=== PATIENT | male | born 1965 | race African-American/Black ===

== ENCOUNTER 2020-06-29 18:38 | Inpatient (IN) | payer BC, OTHER ==
[~2020-06-29] VITALS: Ht 185.4 cm; Wt 138.3 kg
[2020-06-29] MEDS ORDERED: PANTOPRAZOLE SODIUM 40 MG/VIAL IV STA (18:52)
[2020-06-29] MEDS ORDERED: ONDANSETRON HCL 4MG/2ML INJ IV STA (18:52)
[2020-06-29] MEDS ORDERED: SODIUM CHLORIDE 0.9% 1,000 ML IV ONE ×2 (19:00→19:15)
[2020-06-29] MEDS ORDERED: PANTOPRAZOLE SODIUM 40 MG/VIAL IV ONE ×2 (19:15→19:39)
[2020-06-29] MEDS ORDERED: PANTOPRAZOLE 80 MG in SODIUM CHLORIDE 0.9% 100 ML IV SCH ×2 (19:15→20:00)
[2020-06-29] MEDS ORDERED: OCTREOTIDE 1,000 MCG in SODIUM CHLORIDE 0.9% 100 ML IV ONE ×2 (19:30→20:00)
[2020-06-29 19:35] LABS: BASOPHILS % 0.9 % (0.0-2.0); HEMATOCRIT. 30.8 % (42.0-52.0); HEMOGLOBIN. 9.8 g/dL (14.0-18.0); LYMPHOCYTES % 10.7 % (20.0-50.0); MEAN CORPUSCULAR HEMOGLOBIN 25.4 pg (28.0-32.0); MEAN CORPUSCULAR VOLUME 79.5 fL (80.0-94.0); MEAN PLATELET VOLUME 10.6 fl (7.4-10.4); MONOCYTES % 2.8 % (2.0-8.0); NEUTROPHILS % 85.6 % (40.0-76.0); PLATELET 165 x1000/uL (130-400); RED BLOOD CELL COUNT 3.87 mill/uL (4.7-6.1)
[2020-06-29 19:38] LABS: CHLORIDE 107 mEq/L (98-107)
[2020-06-29 19:42] LABS: INR 1.1; PROTHROMBIN TIME 11.4 sec (9.6-11.0)
[2020-06-29 19:43] LABS: ETHANOL BLOOD < 10 mg/dL
[2020-06-29] MEDS ORDERED: MORPHINE SULFATE 4 MG/ML CPJ (NOT FOR IM USE) IV ONE (22:00)
[2020-06-29] MEDS ORDERED: ONDANSETRON HCL 4MG/2ML INJ IV PRN (22:15)
[2020-06-29 23:13] LABS: TOTAL IRON BINDING CAPACITY 350 ug/dL (250-450)
[2020-06-29] MEDS ORDERED: IOHEXOL-300 100 ML BOTTLE ONE (23:49)
[2020-06-30] VITALS (10 sets, daily range): BP systolic 106–155; BP diastolic 63–107
[2020-06-30] MEDS: DEXT 5%/0.45% NACL 1000ML 1,000 ML IV SCH ×3 (01:12→23:57)
[2020-06-30] MEDS: ACETAMINOPHEN 325MG TABLET PO PRN (01:30)
[2020-06-30] MEDS ORDERED: ZOLPIDEM TARTRATE 5MG TABLET PO PRN (01:45)
[2020-06-30] MEDS: PANTOPRAZOLE 80 MG in SODIUM CHLORIDE 0.9% 100 ML IV SCH ×2 (03:36→14:02)
[2020-06-30] MEDS ORDERED: PANTOPRAZOLE 80 MG in SODIUM CHLORIDE 0.9% 100 ML IV SCH (05:00)
[2020-06-30 05:16] LABS: CHLORIDE 110 mEq/L (98-107)
[2020-06-30 05:19] LABS: BASOPHILS % 0.3 % (0.0-2.0); HEMATOCRIT. 26.6 % (42.0-52.0); HEMOGLOBIN. 8.4 g/dL (14.0-18.0); LYMPHOCYTES % 16.8 % (20.0-50.0); MEAN CORPUSCULAR HEMOGLOBIN 25.2 pg (28.0-32.0); MEAN CORPUSCULAR VOLUME 80.1 fL (80.0-94.0); MEAN PLATELET VOLUME 10.6 fl (7.4-10.4); MONOCYTES % 4.5 % (2.0-8.0); NEUTROPHILS % 78.4 % (40.0-76.0); PLATELET 98 x1000/uL (130-400); RED BLOOD CELL COUNT 3.32 mill/uL (4.7-6.1); RED CELL DISTRIBUTION WIDTH 17.1 % (11.6-14.6)
[2020-06-30] MEDS: HYDROMORPHONE HCL/PF 2MG/ML CPJ IV PRN ×2 (05:50→10:15)
[2020-06-30] MEDS ORDERED: ASPI-1497 PO (09:57)
[2020-06-30] MEDS ORDERED: [UNRECOGNIZED DRUG - OTHER] PO (09:57)
[2020-06-30] MEDS ORDERED: MULT-1146 PO (09:57)
[2020-06-30] MEDS ORDERED: LIP40 PO (09:57)
[2020-06-30] MEDS ORDERED: LISI20TA31 PO (09:57)
[2020-06-30] MEDS ORDERED: OCTREOTIDE 1,000 MCG in SODIUM CHLORIDE 0.9% 98 ML IV SCH (13:15)
[2020-06-30] MEDS ORDERED: METOCLOPRAMIDE HCL 10MG/2ML VIAL IV SCH (14:00)
[2020-06-30 15:44] LABS: HEMATOCRIT 24.8 % (42.0-52.0); HEMOGLOBIN 7.8 g/dL (14.0-18.0)
[2020-06-30] MEDS ORDERED: METOCLOPRAMIDE HCL 10MG/2ML VIAL IV NR (16:00)
[2020-06-30] MEDS ORDERED: MIDAZOLAM HCL 5 MG/5 ML VIAL ONE (17:07)
[2020-06-30] MEDS ORDERED: FENTANYL CITRATE/PF 50MCG/ML 2ML VIAL ONE (17:07)
[2020-06-30] MEDS ORDERED: MIDAZOLAM HCL 5 MG/5 ML VIAL IV PRN (17:07)
[2020-06-30] MEDS ORDERED: FENTANYL CITRATE/PF 50MCG/ML 2ML VIAL IV PRN (17:07)
[2020-06-30] MEDS ORDERED: DIAZEPAM 5 MG/ML 2ML CPJ ONE ×2 (17:12→17:18)
[2020-06-30] MEDS ORDERED: DIAZEPAM 5 MG/ML 2ML CPJ IV PRN (17:12)
[2020-07-01] VITALS (26 sets, daily range): BP systolic 97–203; BP diastolic 64–113
[2020-07-01] MEDS: PANTOPRAZOLE 80 MG in SODIUM CHLORIDE 0.9% 100 ML IV SCH (00:05)
[2020-07-01 01:08] LABS: HEMATOCRIT 23.4 % (42.0-52.0); HEMOGLOBIN 7.6 g/dL (14.0-18.0)
[2020-07-01 07:10] LABS: PARTIAL THROMBOPLASTIN TIME 24.4 sec (23.4-31.0); PROTHROMBIN TIME 10.9 sec (9.6-11.0)
[2020-07-01 07:11] LABS: BASOPHILS % 0.4 % (0.0-2.0); EOSINOPHILS % 0.6 % (0.0-5.0); HEMATOCRIT. 22.2 % (42.0-52.0); HEMOGLOBIN. 7.1 g/dL (14.0-18.0); LYMPHOCYTES % 19.1 % (20.0-50.0); MEAN CORPUSCULAR VOLUME 80.9 fL (80.0-94.0); MEAN PLATELET VOLUME 9.4 fl (7.4-10.4); MONOCYTES % 4.4 % (2.0-8.0); NEUTROPHILS % 75.5 % (40.0-76.0); PLATELET 103 x1000/uL (130-400); RED BLOOD CELL COUNT 2.75 mill/uL (4.7-6.1)
[2020-07-01 07:24] LABS: CHLORIDE 110 mEq/L (98-107)
[2020-07-01 07:38] LABS: FOLIC ACID (FOLATE) SERUM >20 ng/mL ng/mL (>5.38)
[2020-07-01 07:49] LABS: VITAMIN B12 SERUM 654 pg/mL (211-911)
[2020-07-01] MEDS: HYDRALAZINE 20MG/ML VIAL IV PRN (10:06)
[2020-07-01] MEDS: HYDROMORPHONE HCL/PF 2MG/ML CPJ IV PRN (13:11)
[2020-07-01] MEDS: SUCRALFATE 1 G/10 ML UDC PO SCH ×2 (17:57→20:14)
[2020-07-01] MEDS: FERROUS SULFATE 325MG TABLET PO SCH (17:57)
[2020-07-02] VITALS (7 sets, daily range): BP systolic 127–165; BP diastolic 56–96
[2020-07-02] MEDS: HYDRALAZINE 20MG/ML VIAL IV PRN ×2 (01:46→06:55)
[2020-07-02] MEDS: ACETAMINOPHEN 325MG TABLET PO PRN (03:46)
[2020-07-02 06:45] LABS: BASOPHILS % 0.5 % (0.0-2.0); CHLORIDE 110 mEq/L (98-107); EOSINOPHILS % 0.8 % (0.0-5.0); HEMATOCRIT. 28.6 % (42.0-52.0); HEMOGLOBIN. 9.2 g/dL (14.0-18.0); LYMPHOCYTES % 16.4 % (20.0-50.0); MEAN CORPUSCULAR HEMOGLOBIN 26.2 pg (28.0-32.0); MEAN CORPUSCULAR VOLUME 81.2 fL (80.0-94.0); MEAN PLATELET VOLUME 9.9 fl (7.4-10.4); MONOCYTES % 4.1 % (2.0-8.0); NEUTROPHILS % 78.2 % (40.0-76.0); PLATELET 81 x1000/uL (130-400); RED BLOOD CELL COUNT 3.53 mill/uL (4.7-6.1); RED CELL DISTRIBUTION WIDTH 16.2 % (11.6-14.6)
[2020-07-02] MEDS ORDERED: POTASSIUM CHLORIDE 20MEQ TABLET SR PO NR (07:15)
[2020-07-02] MEDS: SUCRALFATE 1 G/10 ML UDC PO SCH (07:30)
[2020-07-02] MEDS: FERROUS SULFATE 325MG TABLET PO SCH (09:29)
== END 2020-07-02 10:00 | disposition home or self-care (01) | DRG 378 ==
LOC: ER 18:38 → 5EST 21:06 → ENRESERV 22:12 → CANRESERV 22:12 → EDBEDREQSVC 22:31 → EDBEDREQTM 22:31 → ENRESERV 22:34
PROVIDERS: ADMIT Hospitalist; ATTEND Hospitalist
PROC: 0DB68ZX Excision of Stomach, Via Natural or Artificial Opening Endoscopic, Diagnostic (ICD-10-PCS; 2020-06-30)
PROC: 30233N1 Transfusion of Nonautologous Red Blood Cells into Peripheral Vein, Percutaneous Approach (ICD-10-PCS; principal; 2020-07-01)
DX: K92.2 Gastrointestinal hemorrhage, unspecified (principal); D62 Acute posthemorrhagic anemia; K92.0 Hematemesis; D69.6 Thrombocytopenia, unspecified; F12.90 Cannabis use, unspecified, uncomplicated; F17.200 Nicotine dependence, unspecified, uncomplicated; D72.829 Elevated white blood cell count, unspecified; Z20.822 Contact with and (suspected) exposure to COVID-19; I10 Essential (primary) hypertension; Z82.49 Family history of ischemic heart disease and other diseases of the circulatory system
CPT/HCPCS: 36415; 71045; 74177; 80053; 80320; 82270; 82607; 82728; 82746; 83540; 83550; 85014; 85018; 85025; 85044; 86850; 86900; 86920; 87426; 88305; 99285; C9113; J0360; J1170; J2250; J2270; J2354; J2405; J2765; J3010; J7030; J7050; P9016; Q9967; G0480